=== PATIENT | female | born 1980 | race Caucasian/White ===

== ENCOUNTER 2024-06-29 10:12 | Emergency (ER) | payer OTHER ==
[~2024-06-29] VITALS: Ht 162.6 cm; Wt 68.5 kg
[2024-06-29 10:45] VITALS: PULSE 79; RESP 15; TEMP 97; O2SAT 100
[2024-06-29] MEDS ORDERED: ALPRAZOLAM0.5 MG PO (11:12)
[2024-06-29] MEDS ORDERED: BUPROPION XL150 MG PO (11:12)
[2024-06-29] MEDS: SODIUM CHLORIDE 0.9% 1000ML 1,000 ML IV STA (11:22)
[2024-06-29] MEDS: LORAZEPAM INJ 2 MG/ML VIAL IV ONE (11:23)
[2024-06-29 11:27] LABS: BASOPHILS % 0.4 % (0.0-1.0); EOSINOPHILS # (AUTO) 0.2 (0.0-0.4); EOSINOPHILS % 2.6 % (0.0-6.0); HEMOGLOBIN 12.8 g/dL (12.0-16.0); LYMPHOCYTES # (AUTO) 2.1 (1.0-3.2); LYMPHOCYTES % 31.2 % (18.0-39.1); MEAN CORPUSCULAR HEMOGLOBIN 31.3 pg (28-32); MEAN CORPUSCULAR HGB CONC 32.8 g/dL (31-35); MEAN CORPUSCULAR VOLUME 95.4 fL (81-99); MONOCYTES # (AUTO) 0.6 (0.2-0.8); MONOCYTES % 9.4 % (4.4-11.3); NEUTROPHILS # (AUTO) 3.8 (2.1-6.9); NEUTROPHILS % 56.1 % (38.7-80.0); PLATELET COUNT 265 x10e3/uL (140-360); RED BLOOD COUNT 4.09 x10e6/uL (3.6-5.1); RED CELL DISTRIBUTION WIDTH 11.8 % (11.7-14.4)
[2024-06-29 11:51] LABS: ALANINE AMINOTRANSFERASE 31 IU/L (0-55); ALBUMIN 4.1 g/dL (3.5-5.0); ALBUMIN/GLOBULIN RATIO 1.3 (0.8-2.0); ALKALINE PHOSPHATASE 63 IU/L (40-150); BILIRUBIN,TOTAL 0.3 mg/dL (0.2-1.2); BLOOD UREA NITROGEN 13 mg/dL (7-26); BUN/CREATININE RATIO 15 (6-25); CALCIUM 9.7 mg/dL (8.4-10.2); CARBON DIOXIDE 21 mmol/L (22-29); CHLORIDE 107 mmol/L (98-107); CREATINE KINASE 80 IU/L (29-168); CREATININE, SERUM 0.87 mg/dL (0.57-1.11); EST GLOMERULAR FILTRATION RATE 85 ML/MIN (>=60); GLUCOSE 84 mg/dL (74-118); SODIUM 138 mmol/L (136-145); TOTAL PROTEIN 7.2 g/dL (6.5-8.1)
[2024-06-29 12:00] LABS: TROPONIN I < 0.001 ng/mL (0-0.300)
== END 2024-06-29 14:07 | disposition home or self-care (01) ==
LOC: ER 10:48
DX: R00.2 Palpitations (principal); R42 Dizziness and giddiness; F41.9 Anxiety disorder, unspecified
CPT/HCPCS: 36415; 71045; 80053; 82550; 83735; 84484; 84702; 85025; 93005; 99284; J2060; J7030

== ENCOUNTER 2025-01-07 06:36 | Emergency (ER) | payer SELFPAY ==
[~2025-01-07] VITALS: Ht 162.6 cm; Wt 68.5 kg
[~2025-01-07 06:36] MED LIST: ALPRAZOLAM0.5 MG PO; BUPROPION XL150 MG PO
[2025-01-07 06:46] VITALS: PULSE 79; RESP 18; TEMP 98; O2SAT 98
[2025-01-07] MEDS ORDERED: AZITHROMYCIN250 MG PO (06:49)
== END 2025-01-07 07:01 | disposition home or self-care (01) ==
LOC: ER 06:44
DX: W55.03XA Scratched by cat, initial encounter (principal); Y93.84 Activity, sleeping; Y92.89 Other specified places as the place of occurrence of the external cause; F41.9 Anxiety disorder, unspecified
CPT/HCPCS: 99283